=== PATIENT | male | born 1960 | race Caucasian/White ===

== ENCOUNTER 2017-05-23 21:17 | Inpatient (IN) | payer MEDICARE ==
[~2017-05-23] VITALS: Ht 175.3 cm; Wt 69.2 kg
[2017-05-23] MEDS ORDERED: HYDROmorphone 1 MG/ML, 1ML IVPush PRN (22:30)
[2017-05-23] MEDS ORDERED: SODIUM CHLORIDE FLUSH 10ML SYR IVF ONE (22:30)
[2017-05-23] MEDS ORDERED: ONDANSETRON 2MG/ML, 2ML IVPush ONE (22:30)
[2017-05-23] MEDS ORDERED: SODIUM CHLORIDE 0.9% 1,000ML IVBOLUS ONE (22:30)
[2017-05-23] MEDS ORDERED: ONDANSETRON 2MG/ML, 2ML ONE (22:31)
[2017-05-23] MEDS ORDERED: HYDROmorphone 1 MG/ML, 1ML ONE (22:31)
[2017-05-23 22:34] LABS: HEMATOCRIT 37.4 % (39.2-51.8); HEMOGLOBIN 12.2 g/dL (13.7-18.0); WHITE BLOOD COUNT 8.4 x10^3/uL (3.4-10)
[2017-05-23 22:44] LABS: BLOOD UREA NITROGEN 16 mg/dL (7-18)
[2017-05-23 22:47] LABS: ASPARTATE AMINO TRANSFERASE 21 U/L (15-37)
[2017-05-23] MEDS ORDERED: AMPICILLIN/SULBACTAM 3 GM in SODIUM CHLORIDE 0.9% 100 ML IV ONE (23:00)
[2017-05-24] MEDS ORDERED: TAMS-11 PO (00:18)
[2017-05-24] MEDS ORDERED: OMNIPAQUE 350 MG/ML, 100ML BOTTLE ONE (00:59)
[2017-05-24] MEDS ORDERED: VANCOMYCIN PMX 1GM/200ML 200 ML IV ONE (01:30)
[2017-05-24] MEDS ORDERED: BISACODYL 10 MG SUPP PR PRN (01:30)
[2017-05-24] MEDS ORDERED: hydrALAzine 20 MG/ML, 1ML IVPush PRN (01:30)
[2017-05-24] MEDS ORDERED: VANCOMYCIN PER PHARMACY MC PRN (01:30)
[2017-05-24] MEDS ORDERED: ONDANSETRON 2MG/ML, 2ML IVPush PRN (01:30)
[2017-05-24] MEDS ORDERED: ENALAPRILAT 1.25 MG/ML, 2ML IVPush PRN (01:30)
[2017-05-24] MEDS ORDERED: POLYETHYLENE GLYCOL 17 GM PACKET PO PRN (01:30)
[2017-05-24] MEDS ORDERED: PIPERACILLIN/TAZO/PMX 3.375GM 50 ML ONE (01:32)
[2017-05-24] MEDS ORDERED: HEPARIN 5,000 UNITS/ML, 1ML ONE (01:32)
[2017-05-24] MEDS: PIPERACILLIN/TAZO/PMX 3.375GM 50 ML IV SCH ×4 (01:42→19:30)
[2017-05-24] MEDS: HEPARIN 5,000 UNITS/ML, 1ML SQ SCH ×3 (01:42→16:51)
[2017-05-24] MEDS: SODIUM CHLORIDE 0.9% 1,000 ML IV SCH ×2 (01:42→13:39)
[2017-05-24 03:18] VITALS: BP 123/76
[2017-05-24] MEDS ORDERED: PHARMACOKINETIC MONITORING MC PRN (03:30)
[2017-05-24] MEDS ORDERED: PHARMACOKINETIC CONSULTATION MC ONE (03:30)
[2017-05-24] MEDS: OXYcodone IR 5MG TABLET PO PRN ×2 (03:45→16:50)
[2017-05-24 06:59] VITALS: BP 124/73
[2017-05-24] MEDS: morphine SULFATE 10 MG/ML, 1ML IVPush PRN ×3 (07:08→19:30)
[2017-05-24] MEDS: TAMSULOSIN 0.4 MG CAP.ER.24H PO SCH (09:56)
[2017-05-24] MEDS: SENNA/DOCUSATE TABLET PO SCH (09:57)
[2017-05-24 13:19] VITALS: BP 113/71
[2017-05-24] MEDS: VANCOMYCIN 1,400 MG in SODIUM CHLORIDE 0.9% 250 ML IV SCH (15:25)
[2017-05-24 20:15] VITALS: BP 113/72
[2017-05-25] MEDS: HEPARIN 5,000 UNITS/ML, 1ML SQ SCH ×3 (01:30→18:38)
[2017-05-25] MEDS: PIPERACILLIN/TAZO/PMX 3.375GM 50 ML IV SCH ×4 (01:30→19:29)
[2017-05-25] MEDS: morphine SULFATE 10 MG/ML, 1ML IVPush PRN ×2 (01:32→21:44)
[2017-05-25 02:15] VITALS: BP 112/67
[2017-05-25] MEDS: VANCOMYCIN 1,400 MG in SODIUM CHLORIDE 0.9% 250 ML IV SCH ×3 (03:00→17:24)
[2017-05-25] MEDS: OXYcodone IR 5MG TABLET PO PRN ×2 (04:55→09:02)
[2017-05-25] MEDS: ACETAMINOPHEN 325 MG TABLET PO PRN ×4 (04:55→18:41)
[2017-05-25 05:45] LABS: HEMATOCRIT 34.6 % (39.2-51.8); HEMOGLOBIN 11.6 g/dL (13.7-18.0); WHITE BLOOD COUNT 5.5 x10^3/uL (3.4-10)
[2017-05-25 05:56] LABS: BLOOD UREA NITROGEN 17 mg/dL (7-18)
[2017-05-25 05:58] LABS: ASPARTATE AMINO TRANSFERASE 18 U/L (15-37)
[2017-05-25 07:56] VITALS: BP 112/70
[2017-05-25] MEDS: SENNA/DOCUSATE TABLET PO SCH (07:58)
[2017-05-25] MEDS: TAMSULOSIN 0.4 MG CAP.ER.24H PO SCH (07:58)
[2017-05-25 13:53] VITALS: BP 107/59
[2017-05-25 19:24] VITALS: BP 117/58
[2017-05-25] MEDS ORDERED: hydrALAzine 20 MG/ML, 1ML IVPush PRN (19:30)
[2017-05-25] MEDS ORDERED: ENALAPRILAT 1.25 MG/ML, 2ML IVPush PRN (19:30)
[2017-05-25] MEDS ORDERED: PHARMACOKINETIC MONITORING MC PRN (19:30)
[2017-05-25] MEDS ORDERED: ONDANSETRON 2MG/ML, 2ML IVPush PRN (19:30)
[2017-05-25] MEDS ORDERED: BISACODYL 10 MG SUPP PR PRN (19:30)
[2017-05-25] MEDS ORDERED: POLYETHYLENE GLYCOL 17 GM PACKET PO PRN (19:30)
[2017-05-25] MEDS ORDERED: VANCOMYCIN PER PHARMACY MC PRN (19:30)
[2017-05-26 01:43] VITALS: BP 125/79
[2017-05-26] MEDS: HEPARIN 5,000 UNITS/ML, 1ML SQ SCH ×3 (01:47→17:47)
[2017-05-26] MEDS: PIPERACILLIN/TAZO/PMX 3.375GM 50 ML IV SCH ×4 (01:47→19:52)
[2017-05-26] MEDS: morphine SULFATE 10 MG/ML, 1ML IVPush PRN (03:41)
[2017-05-26] MEDS: VANCOMYCIN 1,400 MG in SODIUM CHLORIDE 0.9% 250 ML IV SCH ×2 (05:25→17:46)
[2017-05-26] MEDS: ACETAMINOPHEN 325 MG TABLET PO PRN ×2 (07:54→19:51)
[2017-05-26] MEDS: OXYcodone IR 5MG TABLET PO PRN ×2 (07:59→19:51)
[2017-05-26] MEDS: TAMSULOSIN 0.4 MG CAP.ER.24H PO SCH (08:02)
[2017-05-26 08:30] VITALS: BP 105/72
[2017-05-26] MEDS ORDERED: SENNA/DOCUSATE TABLET PO SCH (09:00)
[2017-05-26 14:00] VITALS: BP 105/72
[2017-05-26] MEDS: TIVICAY 50 MG HOMEMEDPO SCH (15:25)
[2017-05-26 20:11] VITALS: BP 124/75
[2017-05-27] MEDS: ACETAMINOPHEN 325 MG TABLET PO PRN ×6 (00:39→23:21)
[2017-05-27 01:36] VITALS: BP 107/64
[2017-05-27] MEDS: HEPARIN 5,000 UNITS/ML, 1ML SQ SCH ×3 (01:36→17:35)
[2017-05-27] MEDS: PIPERACILLIN/TAZO/PMX 3.375GM 50 ML IV SCH ×4 (01:36→21:08)
[2017-05-27] MEDS: OXYcodone IR 5MG TABLET PO PRN ×4 (03:55→18:43)
[2017-05-27] MEDS: VANCOMYCIN 1,400 MG in SODIUM CHLORIDE 0.9% 250 ML IV SCH ×2 (05:49→17:35)
[2017-05-27 07:24] VITALS: BP 133/82
[2017-05-27] MEDS: TAMSULOSIN 0.4 MG CAP.ER.24H PO SCH (08:51)
[2017-05-27] MEDS: SENNA/DOCUSATE TABLET PO SCH (08:51)
[2017-05-27] MEDS: TIVICAY 50 MG HOMEMEDPO SCH (12:16)
[2017-05-27 13:20] VITALS: BP 111/55
[2017-05-27 19:41] VITALS: BP 129/78
[2017-05-28] MEDS: PIPERACILLIN/TAZO/PMX 3.375GM 50 ML IV SCH ×2 (00:51→07:41)
[2017-05-28 01:28] VITALS: BP 120/76
[2017-05-28] MEDS: HEPARIN 5,000 UNITS/ML, 1ML SQ SCH ×2 (02:30→10:47)
[2017-05-28] MEDS: VANCOMYCIN 1,400 MG in SODIUM CHLORIDE 0.9% 250 ML IV SCH (05:58)
[2017-05-28] MEDS: ACETAMINOPHEN 325 MG TABLET PO PRN (05:58)
[2017-05-28 07:28] VITALS: BP 130/79
[2017-05-28] MEDS: TAMSULOSIN 0.4 MG CAP.ER.24H PO SCH (08:58)
[2017-05-28] MEDS: SENNA/DOCUSATE TABLET PO SCH (08:58)
[2017-05-28] MEDS ORDERED: AMOX1TAB64 PO (09:47)
[2017-05-28] MEDS ORDERED: LACT1CAP24 PO (09:47)
[2017-05-28] MEDS ORDERED: DOXY100C2 PO (09:47)
[2017-05-28] MEDS ORDERED: OXYC5TAB3 PO (09:51)
[2017-05-28] MEDS ORDERED: FLU VACC QS2017-18 (36MOS+) UP/PF 0.5 ML IM-VACC ONE (10:30)
== END 2017-05-28 11:56 | disposition home or self-care (01) | DRG 727 ==
LOC: ED 22:49 → EDIP 05-24 01:19 → 4NOR 05-24 02:50 → 3NW 05-27 14:10 → DCLOUNGE 05-28 11:40
PROVIDERS: ADMIT Internal Medicine; ATTEND Internal Medicine
DX: N48.22 Cellulitis of corpus cavernosum and penis (principal); E43 Unspecified severe protein-calorie malnutrition; N49.2 Inflammatory disorders of scrotum; D64.9 Anemia, unspecified; F17.210 Nicotine dependence, cigarettes, uncomplicated; N40.0 Benign prostatic hyperplasia without lower urinary tract symptoms; Z88.2 Allergy status to sulfonamides; Z68.22 Body mass index [BMI] 22.0-22.9, adult
CPT/HCPCS: 36415; 72193; 80053; 80061; 80202; 81003; 83036; 83605; 83735; 84145; 84439; 84443; 85025; 87040; 90686; 96361; 96365; 96375; J0295; J1644; J2405; J2543; J3370; Q9967; J2270; J7030; J7050